=== PATIENT | male | born 1985 ===

== ENCOUNTER 2021-07-09 07:26 | Day surgery (SDC) | payer BC ==
[~2021-07-09 07:26] MED LIST: Lactated Ringers 1,000 ML IV SCH; Lidocaine 1%/Sod Bicarbonate in NS 8.4% 1 ML Syringe IDERM PRN; Sodium Chloride 0.9% 10 ML Syringe FLUSH PRN; Sodium Chloride 0.9% 10 ML Syringe FLUSH SCH
[2021-07-09] MEDS ORDERED: Propofol 200 MG/20 ML SDV ONE ×3 (08:31→09:13)
[2021-07-09] MEDS ORDERED: Midazolam 1 MG/ML 2 ML SDV ONE (08:32)
[2021-07-09] MEDS ORDERED: fentaNYL 100 MCG/2 ML SDV ONE (09:13)
[2021-07-09 10:41] VITALS: BP 116/60; PULSE 66
== END 2021-07-09 10:03 | disposition home or self-care (01) ==
LOC: JD.SDS 07:26
PROVIDERS: ATTEND Surgery
DX: D12.4 Benign neoplasm of descending colon (principal); D12.5 Benign neoplasm of sigmoid colon; F17.210 Nicotine dependence, cigarettes, uncomplicated; Z88.6 Allergy status to analgesic agent; Z79.899 Other long term (current) drug therapy; Z80.0 Family history of malignant neoplasm of digestive organs
CPT/HCPCS: 45380; J2250; J2704; J3010; J7120; 00811